=== PATIENT | male | born 1975 ===

== ENCOUNTER 2018-08-01 12:57 | Emergency (ER) | payer OTHER ==
[2018-08-01] MEDS ORDERED: ASPIRIN PO ONE (13:27)
[2018-08-01 13:53] LABS: Basophils # (Auto) 0.1 K/mm3 (0.0-0.1); Basophils % (Auto) 0.6 % (0.0-1.8); Eosinophils # (Auto) 0.2 K/mm3 (0.0-0.4); Eosinophils % (Auto) 1.6 % (0.0-4.3); Hematocrit 44.6 % (35.5-45.6); Hemoglobin 15.4 gm/dl (11.8-15.2); Lymphocytes # (Auto) 2.8 K/mm3 (1.2-5.4); Lymphocytes % (Auto) 29.1 % (13.4-35.0); Mean Corpuscular HGB Conc 35 % (32-34); Mean Corpuscular Volume 83 fl (84-94); Monocytes # (Auto) 0.6 K/mm3 (0.0-0.8); Monocytes % (Auto) 6.4 % (0.0-7.3); Platelet Count 203 K/mm3 (140-440); Red Blood Count 5.36 M/mm3 (3.65-5.03)
[2018-08-01 14:15] LABS: BUN/Creatinine Ratio 17; Blood Urea Nitrogen 17 mg/dL (9-20); Calcium 8.9 mg/dL (8.4-10.2); Hemolysis Index 16
--- NOTE | 2018-08-01 14:34 | XRay Report ---
ROUTINE CHEST, TWO VIEWS: HISTORY: chest pain. The trachea, heart, mediastinal contour, lung jewell and bony thorax are unremarkable. IMPRESSION: Unremarkable chest x-ray.
[2018-08-01 18:03] LABS: Partial Thromboplastin Time 29.5 Sec. (24.2-36.6)
--- NOTE | 2018-08-01 18:21 | Emergency Department Report ---
ED Shortness of Breath HPI - General Chief Complaint: Dyspnea/Respdistress Stated Complaint: DR REQUEST/EKG READINGS Time Seen by Provider: 08/01/18 16:10 Source: patient Mode of arrival: Ambulatory Limitations: No Limitations - History of Present Illness Initial Comments: 42-year-old male with history of hypertension presents to ED with 1 day history of dyspnea. Patient states it feels as if he is unable to take a deep breath. Denies feeling short of breath per se. Patient also reports it feels as if the skin around his chest is vibrating. Patient denies nausea, vomiting, cough, fever, leg pain or leg swelling. He was seen in urgent care and advised to come to the ER due to abnormal EKG. Patient states he had a normal cardiac cath by Dr. Hernandez one year ago. Patient denies tobacco, alcohol, drug use. PCP: Dr Jeff CINTRON Complaint: shortness of breath -: days(s) (1) Severity: mild Consistency: intermittent Improves With: nothing Worsens With: nothing Treatments Prior to Arrival: none - Related Data Allergies Allergy/AdvReac Type Severity Reaction Status Date / Time No Known Allergies Allergy Unverified 08/01/18 13:00 ED Review of Systems ROS: Stated complaint: DR REQUEST/EKG READINGS Other details as noted in HPI Comment: All other systems reviewed and negative Constitutional: denies: chills, fever Respiratory: shortness of breath. denies: cough Cardiovascular: denies: chest pain Gastrointestinal: denies: nausea, vomiting Musculoskeletal: other (denies leg pain or swelling) ED Past Medical Hx - Past Medical History Previous Medical History?: Yes Hx Hypertension: Yes Hx Diabetes: Yes - Surgical History Past Surgical History?: Yes Additional Surgical History: cardiac cath 2017 - Social History Smoking Status: Former Smoker Substance Use Type: None ED Physical Exam - General Limitations: No Limitations General appearance: alert, in no apparent distress - Head Head exam: Present: atraumatic, normocephalic - Eye Eye exam: Present: normal appearance - ENT ENT exam: Present: mucous membranes moist - Neck Neck exam: Present: normal inspection - Respiratory Respiratory exam: Present: normal lung sounds bilaterally. Absent: respiratory distress - Cardiovascular Cardiovascular Exam: Present: regular rate, normal rhythm - GI/Abdominal GI/Abdominal exam: Present: soft. Absent: distended, tenderness - Extremities Exam Extremities exam: Present: normal inspection. Absent: pedal edema, calf tenderness - Neurological Exam Neurological exam: Present: alert, oriented X3 - Psychiatric Psychiatric exam: Present: normal affect, normal mood - Skin Skin exam: Present: warm, dry, intact, normal color ED Course Vital Signs 08/01/18 08/01/18 08/01/18 13:26 14:45 14:57 Temperature 98.4 F 98.8 F Pulse Rate 88 84 Respiratory 16 21 Rate Blood Pressure 149/97 O2 Sat by Pulse 98 97 Oximetry 08/01/18 08/01/18 08/01/18 15:00 15:15 15:30 Temperature Pulse Rate 83 80 77 Respiratory 21 20 18 Rate Blood Pressure 114/77 120/78 128/89 O2 Sat by Pulse 95 96 96 Oximetry 08/01/18 08/01/18 08/01/18 15:45 16:00 16:15 Temperature Pulse Rate 75 78 96 H Respiratory 18 19 18 Rate Blood Pressure 120/79 118/79 123/97 O2 Sat by Pulse 95 97 93 Oximetry 08/01/18 08/01/18 08/01/18 16:30 16:45 17:00 Temperature Pulse Rate 88 79 84 Respiratory 13 18 20 Rate Blood Pressure 123/97 125/94 128/81 O2 Sat by Pulse 98 98 97 Oximetry 08/01/18 08/01/18 08/01/18 17:15 17:30 17:45 Temperature Pulse Rate 82 76 78 Respiratory 21 12 19 Rate Blood Pressure 138/86 137/84 127/83 O2 Sat by Pulse 95 98 96 Oximetry 08/01/18 08/01/18 08/01/18 18:00 18:15 18:30 Temperature Pulse Rate 78 80 80 Respiratory 20 27 H 15 Rate Blood Pressure 129/82 126/81 126/67 O2 Sat by Pulse 95 95 97 Oximetry 08/01/18 08/01/18 18:45 18:46 Temperature Pulse Rate Respiratory 20 Rate Blood Pressure 126/67 O2 Sat by Pulse 100 88 Oximetry ED Medical Decision Making - Lab Data Result diagrams: 08/01/18 13:39 08/01/18 13:39 - EKG Data -: EKG Interpreted by [place] EKG shows normal: sinus rhythm, axis, ST-T waves Rate: normal - EKG Data Interpretation: no acute changes, other (RBBB and LAFB) - Radiology Data Radiology results: report reviewed, image reviewed - Medical Decision Making 42-year-old male presents to ED with 1 day history of sensation that he is unable to take a deep breath. Patient has abnormal EKG, shows right bundle branch block, however shows no ST changes. Troponin is negative 2. Patient reports normal heart cath one year ago. D-dimer within normal range. Patient in no respiratory distress, O2 sats normal. Patient advised to obtain urgent follow up with his PCP and drainage inspector on an outpatient basis. The patient denies chest pain at this time. Return precautions given. - Differential Diagnosis PE, pneumonia, pulm edema Critical care attestation.: If time is entered above; I have spent that time in minutes in the direct care of this critically ill patient, excluding procedure time. ED Disposition Clinical Impression: Dyspnea Disposition: DC-01 TO HOME OR SELFCARE Is pt being admited?: No Condition: Stable Instructions: Dyspnea (ED) Referrals: DEEPTHI RAYMUNDO MD [Primary Care Provider] - 3-5 Days Time of Disposition: 18:21
[2018-08-01 18:50] VITALS: BP 126/67
== END 2018-08-01 18:56 | disposition home or self-care (01) ==
LOC: ED 12:57
DX: R06.02 Shortness of breath (principal); I10 Essential (primary) hypertension; E11.9 Type 2 diabetes mellitus without complications; Z87.891 Personal history of nicotine dependence
CPT/HCPCS: 36415; 71045; 80048; 84484; 85025; 85379; 85610; 85730; 93005; 93010